=== PATIENT | male | born 1985 | race Caucasian/White ===

== ENCOUNTER 2019-12-13 11:40 | Emergency (ER) | payer BC ==
[~2019-12-13] VITALS: Ht 182.9 cm; Wt 88.5 kg
[2019-12-13 11:40] VITALS: BP_SYST 140
[2019-12-13 12:10] VITALS: BP_SYST 140
== END 2019-12-13 12:11 | disposition home or self-care (01) ==
LOC: SED 11:40
DX: S81.011A Laceration without foreign body, right knee, initial encounter (principal); X58.XXXA Exposure to other specified factors, initial encounter; Y93.89 Activity, other specified; Y92.89 Other specified places as the place of occurrence of the external cause; Y99.8 Other external cause status
CPT/HCPCS: 99281